=== PATIENT | male | born 1980 | race Caucasian/White ===

== ENCOUNTER → 2021-07-17 04:09 | Outpatient (CLI) | payer BC, SELFPAY ==
[2021-07-17 18:14] LABS: SARS-CoV-2 RNA PCR Negative
== END ==
PROVIDERS: PCP Family Medicine; Visit Provider Family Medicine
DX: Z20.822 Contact with and (suspected) exposure to COVID-19 (principal); J06.9 Acute upper respiratory infection, unspecified
CPT/HCPCS: C9803; U0003; U0005

== ENCOUNTER → 2021-11-04 09:55 | Outpatient (CLI) | payer BC, SELFPAY ==
[2021-11-04 19:39] LABS: SARS-CoV-2 RNA PCR Positive
== END ==
PROVIDERS: PCP Family Medicine; Visit Provider Family Medicine
DX: U07.1 COVID-19 (principal)
CPT/HCPCS: C9803; U0003; U0005

== ENCOUNTER 2021-11-05 11:13 | Outpatient (RCR) | payer BC, SELFPAY ==
[2021-11-05 14:15] VITALS: BP 124/77; PULSE 76; RESP 20; TEMP 36.9; O2SAT 99
[2021-11-05] MEDS: ACETAMINOPHEN 325 MG TABLET 650 MG PO (14:20)
[2021-11-05] MEDS: diphenhydrAMINE HCl CAP 25 MG CAPSULE PO (14:20)
[2021-11-05] MEDS: FAMOTIDINE 20 MG TABLET PO (14:20)
[2021-11-05 15:51] VITALS: BP 122/79; PULSE 64; RESP 18; TEMP 36.6; O2SAT 98
== END 2021-11-05 17:00 ==
LOC: AMCINF 11:13
PROVIDERS: PCP Family Medicine; Visit Provider Internal Medicine Hematology & Oncology
DX: U07.1 COVID-19 (principal)
CPT/HCPCS: A9270; M0245; Q0245

== ENCOUNTER 2023-04-22 15:31 | Outpatient (CLI) | payer OTHER, SELFPAY ==
--- NOTE | ~2023-04-22 | XR_ITS ---
XR chest 2V DATE: 04/22/2023 15:45 INDICATION: Generalized chest pain. Previous smoker. TECHNIQUE: 2 views COMPARISON: None FINDINGS: No pulmonary infiltrate or consolidation, pleural effusion or pulmonary vascular congestion or pneumothorax. Normal heart size. No hilar or mediastinal enlargement. Included skeletal structures are unremarkable. IMPRESSION: No active cardiopulmonary disease Reviewed, dictated and finalized at location []
== END 2023-04-22 15:32 ==
PROVIDERS: PCP Physician Assistant; Visit Provider Family Medicine
DX: R07.9 Chest pain, unspecified (principal); Z87.891 Personal history of nicotine dependence
CPT/HCPCS: 71046

== ENCOUNTER 2023-05-09 10:20 | Outpatient (CLI) | payer OTHER, SELFPAY ==
--- NOTE | 2023-05-09 10:53 | EST_ITS ---
Patient Info Name: Claudio Alonso Age: 43 years : 1980 Gender: Male Ht: 66 in Wt: 180 lbs BSA: 1.97 m2 HR: 58 bpm BP: 119 / 79 mmHg Heart Rhythm: Sinus Rhythm Exam Date: 05/09/2023 11:05 AM Exam Location: [facility] Stress Patient Status: Outpatient Admit Date: 05/09/2023 Staff Ordering Physician: Pietro Little MD Attending Provider: Pietro Little MD Exercise Technologist: Ruma Menjivar CT Exercise Physician: Kyle Granger DO Exam Type: CA stress test treadmill Study Info Indications - CHEST PAIN A treadmill exercise stress test was performed. Summary 1. 1. Negative Jesus exercise stress test for ischemic ST changes by ECG criteria. 2. 2. Good functional capacity, achieving 13 METs of workload. 3. 3. Hypertensive response to exercise. 4. 4. Appropriate HR response to exercise. 5. 5. Appropriate HR recovery at 1 minute post exercise. 6. 6. No imaging with stress testing. 7. 7. Patient informed of the above results. Protocol: Jesus Stress ECG Details Stage: REST Duration (min): 1 min : 6 sec Speed (mph): 0.0 Grade (%): 0 HR (bpm): 63 SBP (mmHg): 119 DBP (mmHg): 79 METS: --- Stage: REST Duration (min): 16 min : 16 sec Speed (mph): 0.0 Grade (%): 0 HR (bpm): 63 SBP (mmHg): 119 DBP (mmHg): 79 METS: --- Stage: STAGE 1 Duration (min): 1 min : 0 sec Speed (mph): 1.7 Grade (%): 10 HR (bpm): 87 SBP (mmHg): 119 DBP (mmHg): 79 METS: --- Stage: STAGE 1 Duration (min): 2 min : 0 sec Speed (mph): 1.7 Grade (%): 10 HR (bpm): 90 SBP (mmHg): 119 DBP (mmHg): 79 METS: --- Stage: STAGE 1 Duration (min): 3 min : 0 sec Speed (mph): 1.7 Grade (%): 10 HR (bpm): 88 SBP (mmHg): 119 DBP (mmHg): 79 METS: --- Stage: STAGE 2 Duration (min): 1 min : 0 sec Speed (mph): 2.5 Grade (%): 12 HR (bpm): 101 SBP (mmHg): 144 DBP (mmHg): 92 METS: --- Stage: STAGE 2 Duration (min): 2 min : 0 sec Speed (mph): 2.5 Grade (%): 12 HR (bpm): 102 SBP (mmHg): 143 DBP (mmHg): 88 METS: --- Stage: STAGE 2 Duration (min): 3 min : 0 sec Speed (mph): 2.5 Grade (%): 12 HR (bpm): 102 SBP (mmHg): 143 DBP (mmHg): 88 METS: --- Stage: STAGE 3 Duration (min): 1 min : 0 sec Speed (mph): 3.4 Grade (%): 14 HR (bpm): 109 SBP (mmHg): 139 DBP (mmHg): 85 METS: --- Stage: STAGE 3 Duration (min): 2 min : 0 sec Speed (mph): 3.4 Grade (%): 14 HR (bpm): 115 SBP (mmHg): 139 DBP (mmHg): 85 METS: --- Stage: STAGE 3 Duration (min): 3 min : 0 sec Speed (mph): 3.4 Grade (%): 14 HR (bpm): 118 SBP (mmHg): 157 DBP (mmHg): 112 METS: --- Stage: STAGE 4 Duration (min): 1 min : 0 sec Speed (mph): 4.2 Grade (%): 16 HR (bpm): 130 SBP (mmHg): 157 DBP (mmHg): 112 METS: --- Stage: STAGE 4 Duration (min): 2 min : 0 sec Speed (mph): 4.2 Grade (%): 16 HR (bpm): 137 SBP (mmHg):
== END 2023-05-09 10:21 | disposition home or self-care (01) ==
LOC: ANHCARD 10:21
PROVIDERS: PCP Physician Assistant; Visit Provider Family Medicine
DX: R07.89 Other chest pain (principal)
CPT/HCPCS: 93017